=== PATIENT | female | born 1995 ===

== ENCOUNTER 2017-12-14 06:34 | Emergency (ER) | payer OTHER ==
[2017-12-14 06:48] VITALS: BMI 44.2
[2017-12-14] MEDS ORDERED: Sodium Chloride 0.9% 1,000 ML IV STA (07:32)
--- NOTE | 2017-12-14 07:40 | ED PDOC ---
HPI: Abdomen Time Seen by Provider: 12/14/17 07:28 Chief Complaint (Nursing): Abdominal Pain Chief Complaint (Provider): abdominal pain History Per: Patient History/Exam Limitations: no limitations Onset/Duration Of Symptoms: Hrs (last night) Current Symptoms Are (Timing): Still Present Location Of Pain/Discomfort: Other (lower) Associated Symptoms: Nausea, Vomiting, Diarrhea. denies: Fever, Chills Additional Complaint(s): Kamari Reardon is a 22 year old female, with no significant past medical history, who presents to the emergency department for evaluation of lower abdominal pain associated with nausea, vomit and diarrhea onset since last night. Patient denies any fever, chills or bleeding. No further medical complaints. PMD: None provided. Past Medical History Reviewed: Historical Data, Nursing Documentation, Vital Signs Vital Signs: Last Vital Signs Temp 98.3 F 12/14/17 06:48 Pulse 83 12/14/17 06:48 Resp 18 12/14/17 06:48 BP 141/77 12/14/17 06:48 Pulse Ox 100 12/14/17 07:42 - Medical History PMH: No Chronic Diseases, Fractures (bilat ankles) Denies: Depression, Chronic Kidney Disease - Surgical History Surgical History: Tonsillectomy - Family History Family History: States: No Known Family Hx - Immunization History Hx Tetanus Toxoid Vaccination: No Hx Influenza Vaccination: No Hx Pneumococcal Vaccination: No - Home Medications Home Medications: Ambulatory Orders Medication Instructions Recorded Amoxicillin/Clavulanate [Augmentin 1 tab PO Q12H #20 tab 04/19/17 875 MG-125 MG] Norethindrone-E.estradiol-Iron 1 tab PO DAILY 04/19/17 [Microgestin Fe 1-20 Tablet] Dicyclomine [Dicyclomine HCl] 10 mg PO Q8 #10 cap 12/14/17 Ondansetron [Zofran] 4 mg PO Q8H #10 tab 12/14/17 - Allergies Allergies/Adverse Reactions: Allergies Allergy/AdvReac Type Severity Reaction Status Date / Time No Known Allergies Allergy Verified 04/19/17 18:46 Review of Systems ROS Statement: Except As Marked, All Systems Reviewed And Found Negative Constitutional: Negative for: Fever, Chills Gastrointestinal: Positive for: Nausea, Vomiting, Abdominal Pain (lower), Diarrhea. Negative for: Hematochezia Physical Exam - Reviewed Nursing Documentation Reviewed: Yes Vital Signs Reviewed: Yes - Physical Exam Appears: Positive for: Non-toxic, No Acute Distress Head Exam: Positive for: ATRAUMATIC, NORMAL INSPECTION, NORMOCEPHALIC Skin: Positive for: Normal Color, Warm, Dry Eye Exam: Positive for: Normal appearance, EOMI, PERRL Neck: Positive for: Painless ROM Cardiovascular/Chest: Positive for: Regular Rate, Rhythm. Negative for: Murmur Respiratory: Positive for: Normal Breath Sounds. Negative for: Respiratory Distress Gastrointestinal/Abdominal: Positive for: Tenderness (mild to moderate LLQ) Back: Negative for: L CVA Tenderness, R CVA Tenderness Extremity: Positive for: Normal ROM (full ROM on all extremities). Negative for : Deformity, Swelling Neurologic/Psych: Positive for: Alert, Oriented - Laboratory Results Result Diagrams: 12/14/17 08:20 12/14/17 08:20 - ECG O2 Sat by Pulse Oximetry: 100 (RA) Pulse Ox Interpretation: Normal Medical Decision Making Medical Decision Making: Time: 07:28 Initial Plan: --Abd & Pelvis IV Contrast [CT] --CMP --Urine dipstick --Urine --CBC w/ differential --Toradol 30 mg IVP --Sodium Chloride 1,000 ml IV 150 mls/hr --Zofran Inj 4 mg IVP --Reevaluation ----- Scribe Attestation: Documented by Tod Azul, acting as a scribe for Colby Perry MD. Provider Scribe Attestation: All medical record entries made by the Scribe were at my direction and personally dictated by me. I have reviewed the chart and agree that the record accurately reflects my personal performance of the history, physical exam, medical decision making, and the department course for this patient. I have also personally directed, reviewed, and agree with the discharge instructions and disposition. Disposition - Clinical Impression Clinical Impression: Gastroenteritis - Patient ED Disposition Is Patient to be Admitted: No Counseled Patient/Family Regarding: Studies Performed, Diagnosis, Need For Followup, Rx Given - Disposition Referrals: [facility] [Outside] Disposition: Routine/Home Disposition Time: 13:19 Condition: FAIR Prescriptions: Dicyclomine [Dicyclomine HCl] 10 mg PO Q8 #10 cap Ondansetron [Zofran] 4 mg PO Q8H #10 tab Instructions: Gastroenteritis (ED) Forms: [employer] (Polish)
[2017-12-14 08:40] LABS: BASO % 0.4 % (0.0-2.0); EOS # 0.1 K/uL (0.0-0.7); EOS % 1.1 % (0.0-4.0); LYMPH # 2.2 K/uL (1.0-4.3); LYMPH % 30.6 % (20.0-40.0); MEAN CORPUSCULAR HEMOGLOBIN 31.5 pg (27.0-31.0); MEAN CORPUSCULAR HGB CONC 33.9 g/dL (33.0-37.0); MONO # 0.6 K/uL (0.0-0.8); MONO % 8.2 % (0.0-10.0); NEUT # 4.3 K/uL (1.8-7.0); NEUT % 59.7 % (50.0-75.0); RBC 4.44 Mil/uL (3.80-5.20); RED CELL DISTRIBUTION WIDTH 12.9 % (11.5-14.5); WHITE BLOOD COUNT 7.1 K/uL (4.8-10.8)
[2017-12-14 08:59] LABS: ALB/GLOB RATIO 1.3 (1.0-2.1); ALBUMIN 3.8 g/dL (3.5-5.0); ALT/SGPT 25 U/L (9-52); AST/SGOT 23 U/L (14-36); BLOOD UREA NITROGEN 14 mg/dl (7-17); CALCIUM 9.1 mg/dL (8.4-10.2); GFR AFRICAN-AMERICAN > 60; GFR NON-AFRICAN AMERICAN > 60
[2017-12-14] MEDS ORDERED: Iohexol 300 100 ML IJ ONE (10:19)
[2017-12-14] MEDS ORDERED: Sodium Chloride 0.9% 50 ML IV ONE (10:19)
[2017-12-14 13:43] VITALS: BP 128/78; PULSE 78; RESP 19; TEMP 97; O2SAT 98
--- NOTE | 2017-12-14 14:46 | CT ---
Date of service: 12/14/2017 PROCEDURE: CT Abdomen and Pelvis with contrast HISTORY: Abd pain COMPARISON: None. TECHNIQUE: Following the intravenous administration of iodinated contrast material, a CT examination of the abdomen and pelvis performed from the domes of the diaphragms to the symphysis pubis with reformatted datasets provided in axial, sagittal and coronal planes. Oral contrast was not administered as per referring physician request. Contrast dose: Omnipaque 300, 95 cc Radiation dose: Total exam DLP = 907.28 mGy-cm. This CT exam was performed using one or more of the following dose reduction techniques: Automated exposure control, adjustment of the mA and/or kV according to patient size, and/or use of iterative reconstruction technique. FINDINGS: LOWER THORAX: Unremarkable. LIVER: Mildly diminished density throughout the liver may indicate hepatic steatosis. No gross lesion or ductal dilatation. GALLBLADDER AND BILE DUCTS: Unremarkable. PANCREAS: Unremarkable. No gross lesion or ductal dilatation. SPLEEN: Unremarkable. ADRENALS: Unremarkable. No mass. KIDNEYS AND URETERS: There is moderate prominence of left renal pelvis however the definite caliceal blunting identified throughout the left kidney and obstructive uropathy is not favored. Further, no radiodense urolithiasis identified bilaterally or the urinary bladder and left ureter is normal in caliber. Right ureter is also normal in caliber. Right kidney appears unremarkable grossly. VASCULATURE: Unremarkable. No aortic aneurysm. BOWEL: Stomach collapse not well evaluated. There is moderate fecal loading throughout the majority colon with a [id number] amount the distal rectosigmoid. No suspicious small bowel findings in this non oral contrast exam. No pericolic or perienteric reactive change or diverticular changes. APPENDIX: Normal appendix. PERITONEUM: Unremarkable. No free fluid. No free air. LYMPH NODES: Unremarkable. No enlarged lymph nodes. BLADDER: Unremarkable. REPRODUCTIVE: No suspicious adnexal findings bilaterally. BONES: No acute fracture. OTHER FINDINGS: None. IMPRESSION: 1. No bowel obstruction, mesenteric edema, ascites or free intrarenal gas identified. 2. Mild hepatic steatosis suggested. 3. Mildly prominent left extrarenal pelvis. No definite obstructive uropathy appreciated bilaterally. Findings discussed with Dr. Perry 12/14/2017, 12:01 p.m..
== END 2017-12-14 13:44 | disposition home or self-care (01) ==
LOC: H.ER 06:34
DX: K52.9 Noninfective gastroenteritis and colitis, unspecified (principal)
CPT/HCPCS: 74177; 80053; 81025; 85025; 96361; 96374; 96375; 99284; J1885; J2405; J7030; Q9967

== ENCOUNTER 2018-08-05 22:23 | Emergency (ER) | payer SELFPAY ==
[2018-08-05 22:23] VITALS: BMI 44.2
[2018-08-05 22:28] VITALS: RESP 18; O2SAT 98
--- NOTE | 2018-08-05 22:49 | ED PDOC ---
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 She indicates that although she has full ROM in the shouulder, common tasks, such as putting her hands in her pockets, causes pain. She denies tenderness to palpation and there is no visual deformituy) Past Medical History Reviewed: Historical Data, Nursing Documentation Vital Signs: Last Vital Signs Temp 98.4 F 08/05/18 22:27 Pulse 90 08/05/18 22:27 Resp 18 08/05/18 22:27 BP 109/71 08/05/18 22:27 Pulse Ox 98 08/05/18 22:27 - Medical History PMH: Fractures (bilat ankles) Denies: Depression, Chronic Kidney Disease - Surgical History Surgical History: Tonsillectomy - Family History Family History: States: Unknown Family Hx - Immunization History Hx Tetanus Toxoid Vaccination: No Hx Influenza Vaccination: No Hx Pneumococcal Vaccination: No - Home Medications Home Medications: Ambulatory Orders Medication Instructions Recorded Amoxicillin/Clavulanate [Augmentin 1 tab PO Q12H #20 tab 04/19/17 875 MG-125 MG] Norethindrone-E.estradiol-Iron 1 tab PO DAILY 04/19/17 [Microgestin Fe 1-20 Tablet] Dicyclomine [Dicyclomine HCl] 10 mg PO Q8 #10 cap 12/14/17 Ondansetron [Zofran] 4 mg PO Q8H #10 tab 12/14/17 - Allergies Allergies/Adverse Reactions: Allergies Allergy/AdvReac Type Severity Reaction Status Date / Time No Known Allergies Allergy Verified 08/05/18 22:25 Review of Systems ROS Statement: Except As Marked, All Systems Reviewed And Found Negative Musculoskeletal: Positive for: Shoulder Pain Physical Exam - Reviewed Nursing Documentation Reviewed: Yes Vital Signs Reviewed: Yes - Physical Exam Appears: Positive for: Well, Non-toxic, No Acute Distress. Negative for: Uncomfortable Head Exam: Positive for: ATRAUMATIC, NORMAL INSPECTION Skin: Positive for: Normal Color, Warm, Dry. Negative for: Diaphoresis, Pallor, Rash Neck: Positive for: Normal, Supple Cardiovascular/Chest: Positive for: Regular Rate, Rhythm Respiratory: Positive for: Normal Breath Sounds. Negative for: Respiratory Dist ress Pulses-Carotid (L): 2+ Pulses-Carotid (R): 2+ Pulses-Radial (L): 2+ Pulses-Radial (R): 2+ Extremity: Positive for: Normal ROM (Scarf, Hawkings and IMpingement tests are all negative for the pt right shoulder; there is no deformity, no swelling no eccymosis). Negative for: Tenderness, Deformity, Swelling - ECG O2 Sat by Pulse Oximetry: 98 Medical Decision Making Medical Decision Making: I: r/o acute shoulder injury P: right shoulder xr apap pt had a therapuetic on 07/23 without follow up. Pt is showing on upreg so she will be shielded in xray Wet read of right shoulder xray is normal, with no fx, no separations and no dislocations The patient is stable for discharge and will be given 3 days rest for the shoulder injury Disposition - Clinical Impression Clinical Impression: Shoulder pain, acute - Patient ED Disposition Is Patient to be Admitted: No Counseled Patient/Family Regarding: Diagnosis, Need For Followup - Disposition Disposition: Routine/Home Disposition Time: 23:26 Condition: STABLE Instructions: Shoulder Pain (DC) Forms: [facility] (Lao), [facility] School/Work Excuse
[2018-08-06 00:06] VITALS: BP 116/73; PULSE 84; TEMP 98.2
--- NOTE | 2018-08-06 09:20 | RAD ---
Date of service: 08/05/2018 PROCEDURE: Radiographs of the Right Shoulder HISTORY: r/o acute injury COMPARISON: No prior. FINDINGS: BONES: Normal. No fracture. JOINTS: Normal. Glenohumeral and acromioclavicular joints preserved. No osteoarthritis. SOFT TISSUES: Normal. OTHER FINDINGS: None. IMPRESSION: Normal radiographs of the right shoulder.
== END 2018-08-05 23:25 | disposition home or self-care (01) ==
LOC: H.ER 22:23
DX: M25.511 Pain in right shoulder (principal)